=== PATIENT | female | born 1965 | race Caucasian/White ===

== ENCOUNTER → 2022-02-11 11:58 | Outpatient (BNVA) | payer OTHER, SELFPAY | PROVIDERS: Visit Provider Physician Assistant Medical | DX: S93.401A Sprain of unspecified ligament of right ankle, initial encounter (principal); X58.XXXA Exposure to other specified factors, initial encounter | CPT/HCPCS: 29515; 73600; 73620; 99203 ==

== ENCOUNTER → 2022-02-17 14:47 | Outpatient (BNVA) | payer OTHER, SELFPAY | PROVIDERS: Visit Provider Physician Assistant Medical | DX: S93.491A Sprain of other ligament of right ankle, initial encounter (principal); X58.XXXA Exposure to other specified factors, initial encounter | CPT/HCPCS: 99213 ==

== ENCOUNTER → 2022-02-20 14:34 | Outpatient (BNVA) | payer OTHER, SELFPAY | PROVIDERS: Visit Provider Physician Assistant | DX: S93.401A Sprain of unspecified ligament of right ankle, initial encounter (principal) | CPT/HCPCS: 99202 ==

== ENCOUNTER 2022-03-23 14:52 | Outpatient (REF) | payer OTHER, BC, SELFPAY ==
--- NOTE | ~2022-03-23 | XR_ITS ---
EXAMINATION: XR FOOT, RIGHT CLINICAL INFORMATION: Displaced fracture of the fifth metatarsal COMPARISON: None TECHNIQUE: AP, lateral, and oblique views of the right foot. FINDINGS: There is no visible acute fracture, dislocation or subluxation. The ankle mortise and subtalar joints are normal. There is a small calcaneal heel and retrocalcaneal enthesophytes. The soft tissues are normal. XR/XR foot RT min 3V IMPRESSION: Unremarkable right foot exam.
== END 2022-03-23 14:53 | disposition home or self-care (01) ==
LOC: HO.HOSX 14:52
PROVIDERS: Visit Provider Physician Assistant
DX: S92.351A Displaced fracture of fifth metatarsal bone, right foot, initial encounter for closed fracture (principal); X58.XXXA Exposure to other specified factors, initial encounter; Y93.9 Activity, unspecified; Y92.9 Unspecified place or not applicable; Y99.8 Other external cause status; M76.71 Peroneal tendinitis, right leg; Z88.1 Allergy status to other antibiotic agents; Z88.3 Allergy status to other anti-infective agents; Z88.0 Allergy status to penicillin
CPT/HCPCS: 73630; 99212

== ENCOUNTER 2022-04-30 15:46 | Outpatient (REF) | payer OTHER, BC, SELFPAY ==
--- NOTE | ~2022-04-30 | MR_ITS ---
EXAMINATION: MRI ANKLE WITHOUT CONTRAST, RIGHT CLINICAL INFORMATION: Peroneal tendinitis. Patient reports lateral ankle pain, swelling, numbness. COMPARISON: X-ray 02/11/2022 TECHNIQUE: MRI of the ankle without contrast is performed in a 1.5 Leila high-field scanner. FINDINGS: BONE/JOINTS: Focal subchondral edema in the anterior process of the calcaneus, probably degenerative. No evidence of acute fracture. No talar dome osteochondral lesion seen. Small tibiotalar and posterior subtalar joint fluid. MUSCLES/TENDONS: Intermediate signal from possible mild tendinosis of the peroneus brevis as it courses along the calcaneus. The peroneus brevis tendon appears slightly thin in caliber. Peroneus longus is intact. Increased signal from mild tendinosis in the distal posterior tibial tendon as it courses along the talus to the navicular. There is a small os navicular are present. FDL, FHL are intact. Extensor tendons intact. LIGAMENTS: Grade 2 sprain/partial tear anterior talofibular ligament. Posterior talofibular, posterior and tibiofibular ligaments intact. Mild sprain anterior tibiofibular ligament. Possible sprain of the anterior deep fibers deltoid ligament. Calcaneofibular ligament is intact. ACHILLES TENDON: Intact. PLANTAR FASCIA: Intact. SINUS TARSI: Normal signal. TARSAL TUNNEL : No mass lesion SUBCUTANEOUS SOFT TISSUES: There is subcutaneous edema medially and laterally. MR/MR ankle RT wo con IMPRESSION: 1. Possible mild peroneus brevis tendinosis as it courses along the calcaneus. The peroneus brevis tendon is slightly thin in caliber. 2. Mild distal posterior tibial tendinosis. Small os naviculare present. 3. Grade 2 sprain/partial tear anterior talofibular ligament. Possible mild sprain anterior tibiofibular ligament and the anterior deep fibers deltoid ligament. 4. Focal degenerative signal in the subchondral anterior process of the calcaneus at the calcaneocuboid joint.
== END 2022-04-30 15:47 | disposition home or self-care (01) ==
LOC: HO.MRI 15:46
PROVIDERS: Visit Provider Physician Assistant
DX: M76.71 Peroneal tendinitis, right leg (principal)
CPT/HCPCS: 73721

== ENCOUNTER → 2022-05-06 13:16 | Outpatient (BNVA) | payer OTHER, BC, SELFPAY | PROVIDERS: Visit Provider Physician Assistant | DX: S93.491A Sprain of other ligament of right ankle, initial encounter (principal); M76.71 Peroneal tendinitis, right leg | CPT/HCPCS: 99212 ==

== ENCOUNTER → 2022-06-15 10:26 | Outpatient (BNVA) | payer OTHER, BC, SELFPAY | PROVIDERS: Visit Provider Physician Assistant | DX: M76.71 Peroneal tendinitis, right leg (principal); S93.491D Sprain of other ligament of right ankle, subsequent encounter | CPT/HCPCS: 99212 ==

== ENCOUNTER 2022-07-14 15:00 | Outpatient (RCR) | payer OTHER, BC, SELFPAY ==
--- NOTE | 2022-03-06 16:14 | MHC.PT.EP ---
[facility] [place] [facility] [place] [facility] [place] [facility] [address] Sunny Calderon [address] [phone] F: [phone] F: [phone] F: [phone] F: [phone] Physical Therapy Plan of Care Date of Evaluation: Date of Surgery: n/a Diagnosis: sprain of unspecified ligament R ankle Assessment: Patient is a 56 year old female presenting to PT with complaints of pain in her R ankle. Pt reports onset of pain began 02/11/2022 due to a kid running into her causing her to twist her ankle. She presents today with impairments in pain, ankle ROM, ankle strength, balance, and sensitivity to touch. 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 Clinical presentation today is most consistent with signs and sx associated with R ankle sprain and pt will benefit from skilled PT to address the following problems and impairments noted upon evaluation: pain, ankle ROM, ankle strength, balance, and sensitivity to touch. These problems limit the patient with the following functional activities: work, ambulation, stair negotiation, and ADLs. The prescribed treatment plan of care is medically necessary. Co-morbidities of none were identified and taken into considerations of plan of care. Pt was educated on HEP, role of PT, prognosis, POC. Frequency and Duration: The patient will be seen 2 x week x 6 weeks Short Term Goals: Pt will demonstrate improved ankle ROM within 5 degrees of L in 3 weeks. Pt will demonstrate R ankle MMT at least 4/5 in 3 weeks. Pt will demonstrate ability to ambulate without the boot in 4 weeks. Pt will demonstrate ability to SLS x 30 sec in 4 weeks for improved proprioception. 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 Pt will demonstrate ability to ambulate with min to no pain in 6 weeks for improved tolerance to work. Pt will demonstrate ability to negotiate stairs with min to no pain in 6 weeks for improved ability to access her home. Treatment Plan: Modalities to reduce pain, spasms and effusion. Manual therapy to restore motion and function. Therapeutic exercise to improve strength and flexibility. Neuromuscular re-education for posture and balance. Therapeutic activities to return to functional activities of daily living. Electronically signed by: Harika Chow, PT, DPT, ATC Please sign and return to therapist. Thank you for your referral.
--- NOTE | 2022-07-28 12:17 | MHC.PT.DC ---
[facility] [place] [facility] [place] [facility] [place] [facility] [address] Sunny Calderon [address] [phone] F: [phone] F: [phone] F: [phone] F: [phone] Physical Therapy Discharge Report Diagnosis: sprain of unspecified ligament R ankle Date of Surgery: n/a Date of Evaluation: 03/06/22 Date of Discharge: 07/28/22 Treatments to Date: 29 Cancellations to Date: 6 No Shows to Date: 1 Discharge Status: Recommend MD Follow-up Discharge Summary: Spoke to pt over the phone as she cancelled her final remaining appointment approved by insurance. Pt saw ortho who is referring her to pain management due to continued high pain levels and hypersensitivity. At last visit objective measures revealed essentially no meaningful progress in the last 4 weeks. Pt also rating herself worse on the most recent LEFI compared to prior assessment further supporting lack of progress with skilled PT. At this point due to no recent progress with skilled PT, it is not appropriate to continue. Discussed this with pt over the phone today and she is understanding. Advised her to attend upcoming pain management appointment for further evaluation and control of pain. Pt in agreement with d/c today and recommendations. Electronically signed by: Harika Chow, PT, DPT, ATC Please sign and return to therapist. Thank you for your referral.
== END 2022-07-28 12:17 | disposition home or self-care (01) ==
LOC: HO.PTCHIC 15:00
PROVIDERS: PCP Internal Medicine; Visit Provider Physician Assistant
DX: S93.401A Sprain of unspecified ligament of right ankle, initial encounter (principal)
CPT/HCPCS: 97014; 97110; 97112; 97116; 97140; 97161; 97530

== ENCOUNTER → 2022-07-24 11:25 | Outpatient (BNVA) | payer OTHER, BC, SELFPAY | PROVIDERS: PCP Internal Medicine; Visit Provider Physician Assistant | DX: S93.491A Sprain of other ligament of right ankle, initial encounter (principal); M76.71 Peroneal tendinitis, right leg | CPT/HCPCS: 99212 ==

== ENCOUNTER → 2022-09-07 15:05 | Outpatient (BNVA) | payer OTHER, BC, SELFPAY | PROVIDERS: PCP Internal Medicine; Visit Provider Internal Medicine | DX: S93.491A Sprain of other ligament of right ankle, initial encounter (principal); G90.529 Complex regional pain syndrome I of unspecified lower limb | CPT/HCPCS: 99202 ==